=== PATIENT | female | born 1965 | race African-American/Black ===

== ENCOUNTER 2020-03-14 19:11 | Inpatient (IN) | payer MEDICAID ==
[~2020-03-14] VITALS: Ht 160 cm; Wt 72.6 kg
[2020-03-14] MEDS ORDERED: MORPHINE SULFATE 4 MG/ML CPJ (NOT FOR IM USE) IV STA (21:22)
[2020-03-14] MEDS ORDERED: ONDANSETRON HCL 4MG/2ML INJ IV STA (21:22)
[2020-03-14] MEDS ORDERED: LABETALOL HCL 20MG/4ML CARPUJECT IV ONE (21:30)
[2020-03-14] MEDS ORDERED: SODIUM CHLORIDE 0.9% 1,000 ML IV ONE (21:39)
[2020-03-14 21:50] LABS: CHLORIDE 105 mEq/L (98-107)
[2020-03-14 21:54] LABS: BASOPHILS % 0.2 % (0.0-2.0); HEMOGLOBIN. 15.2 g/dL (12.0-16.0); LYMPHOCYTES % 18.7 % (20.0-50.0); MEAN CORPUSCULAR HEMOGLOBIN 30.3 pg (28.0-32.0); MEAN PLATELET VOLUME 8.1 fl (7.4-10.4); MONOCYTES % 3.4 % (2.0-8.0); NEUTROPHILS % 77.7 % (40.0-76.0); PLATELET 218 x1000/uL (130-400)
[2020-03-14 21:55] LABS: INR 1.1
[2020-03-14] MEDS ORDERED: POTASSIUM CHLORIDE 20MEQ TABLET SR PO SCH (22:15)
[2020-03-14] MEDS ORDERED: INSULIN REGULAR (HUMULIN R) 300UNITS/3ML SUBCUT SCH (22:15)
[2020-03-15 00:45] LABS: CLARITY URINE CLEAR (CLEAR); COLOR URINE YELLOW (YELLOW); KETONES URINE 4+ (NEGATIVE); LEUKOCYTE ESTERASE URINE NEGATIVE (NEGATIVE); NITRITE URINE NEGATIVE (NEGATIVE); OCCULT BLOOD URINE NEGATIVE (NEGATIVE); PH URINE 6.5 (4.5-8.0); PROTEIN URINE NEGATIVE (NEGATIVE); SPECIFIC GRAVITY URINE 1.041 (1.005-1.030)
[2020-03-15 00:58] LABS: *AMPHETAMINES SCREEN URINE NEGATIVE (NEGATIVE); *BARBITURATES SCREEN URINE NEGATIVE (NEGATIVE); *BENZODIAZEPINES SCREEN URINE NEGATIVE (NEGATIVE); *COCAINE SCREEN URINE NEGATIVE (NEGATIVE)
[2020-03-15 00:59] LABS: CANNABINOID URINE SCREEN NEGATIVE (NEGATIVE); METHADONE URINE SCREEN NEGATIVE (NEGATIVE); OPIATES URINE SCREEN PRESUMTIVE POSITIVE (NEGATIVE); PHENCYCLIDINE URINE SCREEN NEGATIVE (NEGATIVE)
[2020-03-15 05:30] VITALS: BP 124/77
[2020-03-15 05:45] VITALS: BP 124/77
[2020-03-15] MEDS ORDERED: HYDROCODONE/ACETAMINOPHEN 10/325MG TABLET PO PRN (06:15)
[2020-03-15] MEDS ORDERED: DEXTROSE 50% WATER 50ML SYRINGE IV PRN (06:15)
[2020-03-15] MEDS: BLOOD SUGAR DIAGNOSTIC STRIP TEST SCH ×4 (06:25→20:45)
[2020-03-15] MEDS: INSULIN LISPRO 100 UNITS/ML SUBCUT SCH ×4 (06:28→20:47)
[2020-03-15] MEDS ORDERED: BLOOD PRESSURE (07:01)
[2020-03-15] MEDS ORDERED: METF-816 PO (07:01)
[2020-03-15 08:00] VITALS: BP 135/82
[2020-03-15 09:26] LABS: BASOPHILS % 0.3 % (0.0-2.0); EOSINOPHILS % 0.2 % (0.0-5.0); HEMATOCRIT. 39.3 % (36.0-48.0); HEMOGLOBIN. 13.6 g/dL (12.0-16.0); LYMPHOCYTES % 30.8 % (20.0-50.0); MEAN CORPUSCULAR VOLUME 86.6 fL (81.0-99.0); MEAN PLATELET VOLUME 7.9 fl (7.4-10.4); MONOCYTES % 7.9 % (2.0-8.0); NEUTROPHILS % 60.8 % (40.0-76.0); PLATELET 234 x1000/uL (130-400); RED BLOOD CELL COUNT 4.54 mill/uL (4.2-5.4); RED CELL DISTRIBUTION WIDTH 12.9 % (11.6-14.6)
[2020-03-15] MEDS: METFORMIN HCL 500MG TABLET PO SCH ×2 (09:36→17:59)
[2020-03-15 09:38] LABS: CHLORIDE 109 mEq/L (98-107)
[2020-03-15] MEDS: INSULIN GLARGINE UD 100 UNITS/ML SYR SUBCUT SCH ×2 (09:40→22:06)
[2020-03-15 09:47] LABS: LDL CHOLESTEROL 179 mg/dL (5-100)
[2020-03-15 09:49] LABS: HDL CHOLESTEROL 40 mg/dL (40-59)
[2020-03-15 12:00] VITALS: BP 133/86
[2020-03-15] MEDS: ONDANSETRON 4MG ODT PO PRN (13:04)
[2020-03-15] MEDS: ACETAMINOPHEN 500MG TABLET PO PRN ×3 (13:05→22:07)
[2020-03-15] MEDS ORDERED: KETOROLAC 30MG/ML VIAL IV PRN (13:15)
[2020-03-15] MEDS: SODIUM CHLORIDE 0.45% 1,000 ML IV SCH (14:09)
[2020-03-15 16:00] VITALS: BP 143/86
[2020-03-15 18:20] LABS: BASOPHILS % 0.4 % (0.0-2.0); EOSINOPHILS % 0.2 % (0.0-5.0); HEMATOCRIT. 39.5 % (36.0-48.0); HEMOGLOBIN. 13.5 g/dL (12.0-16.0); LYMPHOCYTES % 32.4 % (20.0-50.0); MEAN CORPUSCULAR VOLUME 87.5 fL (81.0-99.0); MEAN PLATELET VOLUME 7.8 fl (7.4-10.4); MONOCYTES % 6.5 % (2.0-8.0); NEUTROPHILS % 60.5 % (40.0-76.0); PLATELET 224 x1000/uL (130-400); RED BLOOD CELL COUNT 4.51 mill/uL (4.2-5.4); RED CELL DISTRIBUTION WIDTH 13.2 % (11.6-14.6)
[2020-03-15 20:00] VITALS: BP 127/76
[2020-03-15] MEDS ORDERED: ATORVASTATIN CALCIUM 40MG TABLET PO SCH (21:00)
[2020-03-16] VITALS: BP 115/70
[2020-03-16] MEDS: SODIUM CHLORIDE 0.45% 1,000 ML IV SCH ×2 (01:35→14:49)
[2020-03-16 04:00] VITALS: BP 160/99
[2020-03-16] MEDS: ACETAMINOPHEN 500MG TABLET PO PRN (04:41)
[2020-03-16] MEDS: ONDANSETRON 4MG ODT PO PRN (04:53)
[2020-03-16] MEDS: BLOOD SUGAR DIAGNOSTIC STRIP TEST SCH ×3 (06:41→16:17)
[2020-03-16] MEDS: INSULIN LISPRO 100 UNITS/ML SUBCUT SCH ×3 (06:45→16:17)
[2020-03-16 08:00] VITALS: BP 131/73
[2020-03-16] MEDS: ACETAMINOPHEN 325MG TABLET PO PRN ×3 (09:21→17:26)
[2020-03-16] MEDS: METFORMIN HCL 500MG TABLET PO SCH ×2 (09:21→16:56)
[2020-03-16] MEDS: INSULIN GLARGINE UD 100 UNITS/ML SYR SUBCUT SCH (09:56)
[2020-03-16 12:00] VITALS: BP 139/88
[2020-03-16 16:00] VITALS: BP 133/86
[2020-03-16 16:26] VITALS: BP 133/86
[2020-03-16] MEDS ORDERED: INSULIN GLARGINE UD 100 UNITS/ML SYR SUBCUT SCH (22:00)
== END 2020-03-16 18:00 | disposition home or self-care (01) | DRG 249 ==
LOC: ER 19:11 → 5WST 03-15 00:47 → ENRESERV 03-15 03:14
PROVIDERS: ADMIT Internal Medicine; ATTEND Internal Medicine
DX: K52.9 Noninfective gastroenteritis and colitis, unspecified (principal); E11.65 Type 2 diabetes mellitus with hyperglycemia; E78.5 Hyperlipidemia, unspecified; E87.6 Hypokalemia; I10 Essential (primary) hypertension; R51 Headache
CPT/HCPCS: 36415; 71045; 80048; 80053; 80061; 80305; 81003; 82010; 82962; 83036; 84484; 85025; 93005; 99291; J1815; J2270; J2405; J3490; J7030; Q0162

== ENCOUNTER 2021-06-03 10:56 | Emergency (ER) | payer MEDICAID ==
[~2021-06-03] VITALS: Ht 157.5 cm; Wt 63.0 kg
[~2021-06-03 10:56] MED LIST: BLOOD PRESSURE; METF-874 PO
[2021-06-03] MEDS ORDERED: METOCLOPRAMIDE HCL 10MG/2ML VIAL IV ONE (12:30)
[2021-06-03] MEDS ORDERED: SODIUM CHLORIDE 0.9% 1,000 ML IV ONE (12:30)
[2021-06-03 13:09] LABS: BASOPHILS % 0.5 % (0.0-2.0); EOSINOPHILS % 0.2 % (0.0-5.0); HEMATOCRIT. 39.9 % (36.0-48.0); HEMOGLOBIN. 13.3 g/dL (12.0-16.0); LYMPHOCYTES % 26.7 % (20.0-50.0); MEAN CORPUSCULAR HEMOGLOBIN 29.1 pg (28.0-32.0); MEAN CORPUSCULAR VOLUME 87.1 fL (81.0-99.0); MEAN PLATELET VOLUME 8.3 fl (7.4-10.4); MONOCYTES % 4.5 % (2.0-8.0); NEUTROPHILS % 68.1 % (40.0-76.0); PLATELET 299 x1000/uL (130-400); RED BLOOD CELL COUNT 4.58 mill/uL (4.2-5.4); RED CELL DISTRIBUTION WIDTH 13.3 % (11.6-14.6)
[2021-06-03 13:17] LABS: CHLORIDE 101 mEq/L (98-107)
[2021-06-03 13:24] VITALS: BP 124/88
== END 2021-06-03 14:55 | disposition home or self-care (01) ==
LOC: ER 11:13
DX: R51.9 Headache, unspecified (principal); R42 Dizziness and giddiness; E11.9 Type 2 diabetes mellitus without complications; I10 Essential (primary) hypertension; Z86.73 Personal history of transient ischemic attack (TIA), and cerebral infarction without residual deficits; Z98.890 Other specified postprocedural states
CPT/HCPCS: 36415; 70450; 80053; 85025; 93005; 96360; 99285; J7030; Z7610; J2765

== ENCOUNTER 2022-01-18 15:03 | Emergency (ER) | payer MEDICAID ==
[~2022-01-18] VITALS: Ht 157.5 cm; Wt 73.0 kg
[2022-01-18 15:22] VITALS: BP 170/94
== END 2022-01-18 19:23 | disposition left against medical advice (07) ==
LOC: ER 15:03
DX: Z53.21 Procedure and treatment not carried out due to patient leaving prior to being seen by health care provider (principal)
CPT/HCPCS: 82962

== ENCOUNTER 2023-03-09 12:16 | Emergency (ER) | payer MEDICAID ==
[~2023-03-09] VITALS: Ht 162.6 cm; Wt 65.0 kg
[2023-03-09 12:24] VITALS: BP 151/84; PULSE 90; RESP 18; TEMP 98.1; O2SAT 98
== END 2023-03-09 12:37 | disposition left against medical advice (07) ==
LOC: ER 12:16
DX: Z53.21 Procedure and treatment not carried out due to patient leaving prior to being seen by health care provider (principal)
CPT/HCPCS: 93005; 99281